=== PATIENT | female | born 1995 | race Caucasian/White ===

== ENCOUNTER 2021-06-15 15:57 | Inpatient (IN) | payer BC ==
[~2021-06-15 15:57] MED LIST: Bupivacaine 0.25% 10 ML SDV ONE
[2021-06-15] MEDS ORDERED: Ondansetron 4 MG/2 ML SDV IVPUSH PRN (16:33)
[2021-06-15] MEDS ORDERED: Nalbuphine 10 MG/1 ML Vial IVPUSH PRN (16:33)
[2021-06-15] MEDS ORDERED: Sodium Chloride 0.9% 10 ML Syringe FLUSH PRN (16:33)
[2021-06-15] MEDS ORDERED: Oxytocin/Lactated Ringers 10 UNIT/1,000 ML BAG IV SCH (16:45)
[2021-06-15] MEDS: Lactated Ringers 1,000 ML IV SCH ×2 (19:14→22:37)
[2021-06-15] MEDS: Oxytocin/Lactated Ringers 10 UNIT/1,000 ML BAG IV SCH (19:15)
[2021-06-15] MEDS: Sodium Chloride 0.9% 10 ML Syringe FLUSH SCH (22:04)
[2021-06-15] MEDS ORDERED: diphenhydrAMINE 50 MG/ML SDV IVPUSH PRN (23:57)
[2021-06-15] MEDS ORDERED: ePHEDrine 50 MG/ML SDV IVPUSH PRN (23:57)
[2021-06-16] MEDS: fentaNYL 100 MCG/2 ML SDV EPIDUR PRN ×2 (01:05→13:33)
[2021-06-16] MEDS: Lactated Ringers 1,000 ML IV SCH ×2 (01:05→07:32)
[2021-06-16] MEDS: Bupivacaine/fentaNYL/NS 100 ML Bag EPIDUR PRN ×3 (01:05→17:30)
[2021-06-16] MEDS: Sodium Chloride 0.9% 10 ML Syringe FLUSH SCH (12:32)
[2021-06-16] MEDS: Oxytocin/Lactated Ringers 10 UNIT/1,000 ML BAG IV SCH (12:35)
[2021-06-16] MEDS ORDERED: Lidocaine 1% 50 ML MDV ONE (18:58)
[2021-06-16] MEDS ORDERED: Oxytocin/Lactated Ringers 20 UNIT/1,000 ML BAG IV SCH ×2 (19:15→20:19)
[2021-06-16] MEDS ORDERED: Magnesium Hydroxide 400 MG/5 ML Susp 30 ML Cup PO PRN (20:19)
[2021-06-16] MEDS ORDERED: Benzocaine/Menthol 20%-0.5% Spray 78 GM Cannister TOP PRN (20:19)
[2021-06-16] MEDS: Witch Hazel Medicated Pads 40/Jar TOP PRN (21:03)
[2021-06-16] MEDS: Ibuprofen 600 MG Tab PO PRN (21:04)
[2021-06-16] MEDS: Docusate Sodium 100 MG Cap PO PRN (21:05)
[2021-06-17] MEDS: Ibuprofen 600 MG Tab PO PRN ×2 (06:00→16:41)
[2021-06-17] MEDS: Acetaminophen 325 MG Tab PO PRN (08:43)
[2021-06-17] MEDS: Docusate Sodium 100 MG Cap PO PRN (16:41)
[2021-06-18] MEDS: Witch Hazel Medicated Pads 40/Jar TOP PRN (01:44)
[2021-06-18] MEDS: Ibuprofen 600 MG Tab PO PRN (01:44)
[2021-06-18] MEDS: Docusate Sodium 100 MG Cap PO PRN (07:39)
[2021-06-18] MEDS: Acetaminophen 325 MG Tab PO PRN (07:39)
== END 2021-06-18 12:18 | disposition home or self-care (01) | DRG 560 ==
LOC: JD.OB 15:57 → UNDOADMOB 15:57 → OBSVTOIN 18:48 → INTOOBSV 18:48 → OBSVTOIN 06-16 18:48 → JD.OB 06-16 18:48 → UNDODISIN 06-18 12:18
PROVIDERS: ADMIT Obstetrics & Gynecology; ATTEND Obstetrics & Gynecology
PROC: 3E0R3BZ Introduction of Anesthetic Agent into Spinal Canal, Percutaneous Approach (ICD-10-PCS; principal; 2021-06-15)
PROC: 0U7C7ZZ Dilation of Cervix, Via Natural or Artificial Opening (ICD-10-PCS; principal; 2021-06-15)
PROC: 3E033VJ Introduction of Other Hormone into Peripheral Vein, Percutaneous Approach (ICD-10-PCS; principal; 2021-06-15)
PROC: 4A1HXCZ Monitoring of Products of Conception, Cardiac Rate, External Approach (ICD-10-PCS; principal; 2021-06-15)
PROC: 10D07Z6 Extraction of Products of Conception, Vacuum, Via Natural or Artificial Opening (ICD-10-PCS; principal; 2021-06-15)
PROC: 0KQM0ZZ Repair Perineum Muscle, Open Approach (ICD-10-PCS; principal; 2021-06-15)
DX: O69.81X0 Labor and delivery complicated by cord around neck, without compression, not applicable or unspecified (principal); O70.1 Second degree perineal laceration during delivery; Z37.0 Single live birth; Z3A.39 39 weeks gestation of pregnancy; Z20.822 Contact with and (suspected) exposure to COVID-19
CPT/HCPCS: 01967; 36415; 51701; 51702; 59025; 59409; 85025; 86592; 86850; 86900; 86901; A9270-GY; J2001; J2300; J2405; J2590; J3010; J3490; J7120; U0002

== ENCOUNTER 2022-09-30 17:59 | Emergency (ER) | payer SELFPAY ==
[2022-09-30] MEDS ORDERED: Ondansetron 4 MG/2 ML SDV IVPUSH ONE (18:33)
[2022-09-30] MEDS ORDERED: Sodium Chloride 0.9% 1,000 ML IV ONE (18:33)
[2022-09-30 18:39] LABS: BASOPHILS ABSOLUTE AUTO 0.03 K/mm3 (0.01-0.08); BASOPHILS PERCENT AUTO 0.4 % (0.1-1.2); EOSINOPHILS ABSOLUTE AUTO 0.07 K/mm3 (0.04-0.36); EOSINOPHILS PERCENT AUTO 0.9 (0.7-5.8); HEMATOCRIT 35.1 % (34.1-44.9); HEMOGLOBIN 11.6 gm/dl (11.2-15.7); IMMATURE GRAN ABSOLUTE AUTO 0.02 K/mm3 (0.00-0.10); IMMATURE GRAN PERCENT AUTO 0.3 % (<=1.0); LYMPHOCYTES ABSOLUTE AUTO 1.99 K/mm3 (1.18-3.74); LYMPHOCYTES PERCENT AUTO 25.7 % (19.3-51.7); MEAN CORPUSCULAR HEMOGLOBIN 32.8 pg (25.6-32.2); MEAN CORPUSCULAR VOLUME 99.2 fl (79.4-94.8); MEAN PLATELET VOLUME 8.9 fl (9.4-12.3); MONOCYTES ABSOLUTE AUTO 0.52 K/mm3 (0.24-0.36); MONOCYTES PERCENT AUTO 6.7 % (4.7-12.5); PLATELET COUNT,PLT 264 K/mm3 (182-369); RED BLOOD CELL COUNT 3.54 M/mm3 (3.98-5.22); WHITE BLOOD CELL COUNT,WBC 7.73 K/mm3 (3.98-10.04)
[2022-09-30 18:50] LABS: A/G RATIO 0.8 (1-2); ALBUMIN 2.9 g/dl (3.4-5.0); ANION GAP 13.4 (5-15); BILIRUBIN TOTAL 0.4 mg/dL (0.2-1.0); BUN/CREATININE RATIO 8.6 (14-18); CALCIUM 7.9 mg/dL (8.5-10.1); CREATININE 0.7 mg/dL (0.55-1.02); EST CRCL DRUG DOSING (CG) 99.86 mL/min; MAGNESIUM 1.6 mg/dL (1.8-2.4); POTASSIUM,K 3.4 mEq/L (3.5-5.1); PROTEIN TOTAL,TP 6.6 g/dl (6.4-8.2)
[2022-09-30] MEDS ORDERED: Potassium Chloride 20 MEQ Tab.ER PO ONE (19:24)
[2022-09-30] MEDS ORDERED: Magnesium Sulfate/Water 2 GM in Premix Bag 1 BAG IV ONE (19:24)
[2022-09-30] MEDS ORDERED: Magnesium Oxide 400 MG Tab PO ONE (19:35)
== END 2022-09-30 19:50 | disposition home or self-care (01) ==
LOC: JD.ED 17:59 → JD.OBCHECK 17:59 → JD.OB 18:09 → JD.ED 18:09 → JD.OBCHECK 18:09 → EDSTATUS 18:14 → JD.ED 19:50
DX: O21.2 Late vomiting of pregnancy (principal); Z3A.22 22 weeks gestation of pregnancy
CPT/HCPCS: 36415; 80053; 83735; 85025; 96361; 96374; 99284; A9270; J2405; J7030

== ENCOUNTER 2023-01-06 20:36 | Observation (INO) | payer OTHER | END 2023-01-06 21:25 | disposition home or self-care (01) | LOC: JD.OBCHECK 20:36 → JD.OB 20:39 → JD.OBCHECK 20:51 | PROVIDERS: ADMIT Obstetrics & Gynecology; ATTEND Obstetrics & Gynecology | DX: O47.03 False labor before 37 completed weeks of gestation, third trimester (principal); Z3A.36 36 weeks gestation of pregnancy | CPT/HCPCS: 59025 ==

== ENCOUNTER 2023-01-20 12:34 | Inpatient (IN) | payer OTHER ==
[2023-01-20] MEDS ORDERED: Lidocaine 1% 50 ML MDV INJECT ONE (12:49)
[2023-01-20] MEDS ORDERED: Nalbuphine HCl 10 MG/ 1ML Amp IVPUSH PRN (12:49)
[2023-01-20] MEDS ORDERED: Sodium Chloride 0.9% 10 ML Syringe FLUSH PRN (12:49)
[2023-01-20] MEDS ORDERED: Ondansetron 4 MG/2 ML SDV IVPUSH PRN (12:54)
[2023-01-20] MEDS ORDERED: Oxytocin/Lactated Ringers 10 UNIT/1,000 ML BAG IV SCH ×2 (13:00)
[2023-01-20] MEDS ORDERED: Lactated Ringers 1,000 ML IV SCH (13:00)
[2023-01-20 13:13] LABS: BASOPHILS PERCENT AUTO 0.3 % (0.0-1.0); HEMATOCRIT 32.2 % (37.0-47.0); HEMOGLOBIN 10.6 gm/dl (12.0-16.0); IMMATURE GRAN ABSOLUTE AUTO 0.03 K/mm3 (0.00-0.05); IMMATURE GRAN PERCENT AUTO 0.3 % (0.0-0.4); LYMPHOCYTES ABSOLUTE AUTO 1.9 K/mm3 (1.0-4.8); LYMPHOCYTES PERCENT AUTO 19.1 % (24.0-44.0); MEAN CORPUSCULAR HEMOGLOBIN 31.9 pg (28.0-32.0); MEAN CORPUSCULAR HGB CONC 32.9 g/dl (32.0-36.0); MEAN PLATELET VOLUME 9.8 fl (9.4-12.3); MONOCYTES ABSOLUTE AUTO 0.5 K/mm3 (0.0-0.8); MONOCYTES PERCENT AUTO 4.6 % (0.0-8.0); NEUTROPHILS ABSOLUTE AUTO 7.5 K/mm3 (1.8-7.7); NEUTROPHILS PERCENT AUTO 75.7 % (41.0-71.0); PLATELET COUNT,PLT 218 K/mm3 (150-400); RED BLOOD CELL COUNT 3.32 M/mm3 (4.10-5.30); WHITE BLOOD CELL COUNT,WBC 9.92 K/mm3 (3.9-11.3)
[2023-01-20] MEDS ORDERED: ePHEDrine 50 MG/ML SDV IVPUSH PRN (13:37)
[2023-01-20] MEDS ORDERED: diphenhydrAMINE 50 MG/ML SDV IVPUSH PRN (13:37)
[2023-01-20] MEDS ORDERED: fentaNYL 100 MCG/2 ML SDV EPIDUR PRN (13:37)
[2023-01-20] MEDS ORDERED: Bupivacaine/fentaNYL/NS 100 ML Bag EPIDUR PRN (13:37)
[2023-01-20] MEDS ORDERED: Calcium Carbonate 500 MG Tab.Chew PO ONE (16:15)
[2023-01-20] MEDS ORDERED: Bupivacaine 0.25% 10 ML SDV ONE (18:00)
[2023-01-20] MEDS ORDERED: Witch Hazel Medicated Pads 40/Jar TOP PRN (20:54)
[2023-01-20] MEDS ORDERED: Ibuprofen 600 MG Tab PO PRN (20:54)
[2023-01-20] MEDS ORDERED: Acetaminophen 325 MG Tab PO PRN (20:54)
[2023-01-20] MEDS ORDERED: Benzocaine/Menthol 20%-0.5% Spray 78 GM Cannister TOP PRN (20:54)
[2023-01-20] MEDS ORDERED: Sodium Chloride 0.9% 10 ML Syringe FLUSH SCH (21:00)
== END 2023-01-21 09:30 | disposition home or self-care (01) | DRG 807 ==
LOC: JD.OB 12:34 → OBSVTOIN 16:30 → JD.OB 16:30
PROVIDERS: ADMIT Obstetrics & Gynecology; ATTEND Obstetrics & Gynecology
PROC: 10E0XZZ Delivery of Products of Conception, External Approach (ICD-10-PCS; principal; 2023-01-20)
PROC: 10907ZC Drainage of Amniotic Fluid, Therapeutic from Products of Conception, Via Natural or Artificial Opening (ICD-10-PCS; 2023-01-20)
PROC: 0HQ9XZZ Repair Perineum Skin, External Approach (ICD-10-PCS; 2023-01-20)
PROC: 3E0R3BZ Introduction of Anesthetic Agent into Spinal Canal, Percutaneous Approach (ICD-10-PCS; 2023-01-20)
PROC: 00HU33Z Insertion of Infusion Device into Spinal Canal, Percutaneous Approach (ICD-10-PCS; 2023-01-20)
DX: O66.0 Obstructed labor due to shoulder dystocia (principal); Z37.0 Single live birth; O69.81X0 Labor and delivery complicated by cord around neck, without compression, not applicable or unspecified; O70.0 First degree perineal laceration during delivery; Z3A.38 38 weeks gestation of pregnancy; Z98.890 Other specified postprocedural states
CPT/HCPCS: 36415; 51701; 59025; 59409; 85025; 86592; 86850; 86900; 86901; A9270-GY; J2590; J3010; J3490; J7120

== ENCOUNTER 2023-01-26 11:12 | Emergency (ER) | payer OTHER ==
[2023-01-26] MEDS ORDERED: Sodium Chloride 0.9% 10 ML Syringe FLUSH PRN ×2 (11:20→12:11)
[2023-01-26 11:34] LABS: BASOPHILS PERCENT AUTO 0.4 % (0.0-1.0); EOSINOPHILS ABSOLUTE AUTO 0.1 K/mm3 (0.0-0.4); EOSINOPHILS PERCENT AUTO 1.1 % (0.0-6.0); HEMATOCRIT 33.1 % (37.0-47.0); HEMOGLOBIN 10.8 gm/dl (12.0-16.0); IMMATURE GRAN ABSOLUTE AUTO 0.03 K/mm3 (0.00-0.05); IMMATURE GRAN PERCENT AUTO 0.5 % (0.0-0.4); LYMPHOCYTES ABSOLUTE AUTO 1.5 K/mm3 (1.0-4.8); LYMPHOCYTES PERCENT AUTO 26.4 % (24.0-44.0); MEAN CORPUSCULAR HEMOGLOBIN 31.2 pg (28.0-32.0); MEAN CORPUSCULAR HGB CONC 32.6 g/dl (32.0-36.0); MEAN CORPUSCULAR VOLUME 95.7 fl (83.0-99.0); MEAN PLATELET VOLUME 8.9 fl (9.4-12.3); MONOCYTES ABSOLUTE AUTO 0.2 K/mm3 (0.0-0.8); MONOCYTES PERCENT AUTO 4.3 % (0.0-8.0); NEUTROPHILS ABSOLUTE AUTO 3.7 K/mm3 (1.8-7.7); NEUTROPHILS PERCENT AUTO 67.3 % (41.0-71.0); PLATELET COUNT,PLT 278 K/mm3 (150-400); RED BLOOD CELL COUNT 3.46 M/mm3 (4.10-5.30); WHITE BLOOD CELL COUNT,WBC 5.52 K/mm3 (3.9-11.3)
[2023-01-26] MEDS ORDERED: Ketorolac 30 MG/ML SDV IVPUSH ONE (11:44)
[2023-01-26 11:54] LABS: PROTHROMBIN TIME 9.6 SECONDS (9.7-12.0)
[2023-01-26 11:59] LABS: INR < 0.93
[2023-01-26 11:59] LABS: APPEARANCE,URINE SLT CLOUDY (Clear); BILIRUBIN,URINE NEGATIVE (Negative); COLOR,URINE YELLOW (Yellow); GLUCOSE,URINE NEGATIVE (Negative); KETONES,URINE NEGATIVE (Negative); LEUKOCYTE ESTERASE,URINE 1+ (Negative); NITRITE,URINE NEGATIVE (Negative); OCCULT BLOOD,URINE 2+ (Negative); PROTEIN,URINE NEGATIVE (Negative); UROBILINOGEN,URINE 0.2 (0.2-1.0)
[2023-01-26 12:00] LABS: D-DIMER QUANTITATIVE 2.87 mg/L (0.19-0.50)
[2023-01-26 12:04] LABS: A/G RATIO 0.7 (1-2); ALANINE AMINOTRANSFERASE,ALT 20 U/L (14-59); ALKALINE PHOSPHATASE 125 U/L (46-116); ANION GAP 14.1 (5-15); ASPARTATE AMNIOTRANSFERASE,AST 24 U/L (15-37); BILIRUBIN TOTAL 0.4 mg/dL (0.2-1.0); BLOOD UREA NITROGEN,BUN 7 mg/dL (7-18); CALCIUM 8.6 mg/dL (8.5-10.1); CARBON DIOXIDE,CO2 23 mEq/L (21-32); CHLORIDE,CL 106 mEq/L (98-107); CREATININE 0.7 mg/dL (0.55-1.02); EST CRCL DRUG DOSING (CG) 98.98 mL/min; ESTIMATED GFR 121 mL/min (>60); GLUCOSE RANDOM 97 mg/dL (70-99); MAGNESIUM 1.9 mg/dL (1.8-2.4); POTASSIUM,K 4.1 mEq/L (3.5-5.1); PROTEIN TOTAL,TP 7.2 g/dl (6.4-8.2); SODIUM,NA 139 mEq/L (136-145)
[2023-01-26] MEDS ORDERED: Sodium Chloride 0.9% 10 ML Syringe FLUSH ONE (12:06)
[2023-01-26] MEDS ORDERED: Iopamidol 755 Mg/ML 100 ML Bottle IVPUSH ONE ×2 (12:06→12:11)
[2023-01-26 12:13] LABS: TROPONIN I HIGH SENSITIVITY < 4 pg/mL (<=51)
[2023-01-26] MEDS ORDERED: Sodium Chloride 0.9% 100 ML IV SCH ×2 (12:15)
[2023-01-26 12:38] LABS: BACTERIA,URINE FEW /hpf (FEW); EPITHELIAL CELLS,URINE 0-5 /hpf (0-5); MUCUS,URINE FEW /hpf (FEW)
== END 2023-01-26 13:38 | disposition home or self-care (01) ==
LOC: JD.ED 11:12
DX: R07.89 Other chest pain (principal); R00.1 Bradycardia, unspecified; Z91.011 Allergy to milk products
CPT/HCPCS: 36415; 71045; 71275; 80053; 81001; 83735; 83880; 84484; 85025; 85379; 85610; 85730; 93005; 93246; 96374; 99285; J1885; J3490; Q9967

== ENCOUNTER 2024-09-07 11:30 | Emergency (ER) | payer OTHER ==
[2024-09-07 12:05] LABS: BASOPHILS PERCENT AUTO 0.5 % (0.0-1.0); EOSINOPHILS PERCENT AUTO 0.2 % (0.0-6.0); HEMATOCRIT 41.1 % (37.0-47.0); IMMATURE GRAN ABSOLUTE AUTO 0.01 K/mm3 (0.00-0.05); IMMATURE GRAN PERCENT AUTO 0.2 % (0.0-0.4); LYMPHOCYTES ABSOLUTE AUTO 1.6 K/mm3 (1.0-4.8); LYMPHOCYTES PERCENT AUTO 28.3 % (24.0-44.0); MEAN CORPUSCULAR HEMOGLOBIN 33.4 pg (28.0-32.0); MEAN CORPUSCULAR HGB CONC 33.8 g/dl (32.0-36.0); MEAN PLATELET VOLUME 9.4 fl (9.4-12.3); MONOCYTES ABSOLUTE AUTO 0.3 K/mm3 (0.0-0.8); MONOCYTES PERCENT AUTO 5.7 % (0.0-8.0); NEUTROPHILS ABSOLUTE AUTO 3.6 K/mm3 (1.8-7.7); NEUTROPHILS PERCENT AUTO 65.1 % (41.0-71.0); PLATELET COUNT,PLT 282 K/mm3 (150-400); RED BLOOD CELL COUNT 4.16 M/mm3 (4.10-5.30); WHITE BLOOD CELL COUNT,WBC 5.47 K/mm3 (3.9-11.3)
[2024-09-07 12:07] LABS: HEMOGLOBIN 13.9 gm/dl (12.0-16.0); MEAN CORPUSCULAR VOLUME 98.8 fl (83.0-99.0)
[2024-09-07] MEDS: Ketorolac 30 MG/ML SDV IVPUSH ONE (12:09)
[2024-09-07] MEDS: Sodium Chloride 0.9% 1,000 ML IV STA ×2 (12:09→13:43)
[2024-09-07] MEDS: Sodium Chloride 0.9% 10 ML Syringe FLUSH PRN (12:10)
[2024-09-07 12:29] LABS: A/G RATIO 1.3 (1-2); ALANINE AMINOTRANSFERASE,ALT 19 U/L (14-59); ALBUMIN 4.3 g/dl (3.4-5.0); ALKALINE PHOSPHATASE 67 U/L (46-116); ANION GAP 16.4 (5-15); ASPARTATE AMNIOTRANSFERASE,AST 17 U/L (15-37); BILIRUBIN TOTAL 0.9 mg/dL (0.2-1.0); BLOOD UREA NITROGEN,BUN 5 mg/dL (7-18); BUN/CREATININE RATIO 5.6 (14-18); CALCIUM 9.1 mg/dL (8.5-10.1); CARBON DIOXIDE,CO2 23 mEq/L (21-32); CHLORIDE,CL 104 mEq/L (98-107); CREATININE 0.9 mg/dL (0.55-1.02); ESTIMATED GFR 89 mL/min (>60); GLUCOSE RANDOM 110 mg/dL (70-99); MAGNESIUM 1.7 mg/dL (1.8-2.4); POTASSIUM,K 3.4 mEq/L (3.5-5.1); PROTEIN TOTAL,TP 7.7 g/dl (6.4-8.2); SODIUM,NA 140 mEq/L (136-145); TROPONIN I HIGH SENSITIVITY < 4 pg/mL (<=51)
== END 2024-09-07 14:56 | disposition home or self-care (01) ==
LOC: JD.ED 11:30
DX: R07.89 Other chest pain (principal); R53.83 Other fatigue; Z91.011 Allergy to milk products
CPT/HCPCS: 36415; 71046; 80053; 83735; 84484; 85025; 85379; 93005; 96361; 96374; 99285; J1885; J7030

== ENCOUNTER 2024-10-24 14:15 | Emergency (ER) | payer OTHER ==
[2024-10-24 15:27] LABS: BASOPHILS ABSOLUTE AUTO 0.0 K/mm3 (0.0-0.2); BASOPHILS PERCENT AUTO 0.4 % (0.0-1.0); EOSINOPHILS ABSOLUTE AUTO 0.1 K/mm3 (0.0-0.4); EOSINOPHILS PERCENT AUTO 0.7 % (0.0-6.0); IMMATURE GRAN ABSOLUTE AUTO 0.02 K/mm3 (0.00-0.05); IMMATURE GRAN PERCENT AUTO 0.3 % (0.0-0.4); LYMPHOCYTES ABSOLUTE AUTO 1.7 K/mm3 (1.0-4.8); LYMPHOCYTES PERCENT AUTO 25.9 % (24.0-44.0); MEAN PLATELET VOLUME 9.6 fl (9.4-12.3); MONOCYTES ABSOLUTE AUTO 0.4 K/mm3 (0.0-0.8); MONOCYTES PERCENT AUTO 5.4 % (0.0-8.0); NEUTROPHILS ABSOLUTE AUTO 4.5 K/mm3 (1.8-7.7); NEUTROPHILS PERCENT AUTO 67.3 % (41.0-71.0); NRBC ABSOLUTE 0.00 (0.00-0.02); NRBC PERCENT 0.0 % (0.0-0.2); PLATELET COUNT,PLT 195 K/mm3 (150-400); RED BLOOD CELL COUNT 3.69 M/mm3 (4.10-5.30); WHITE BLOOD CELL COUNT,WBC 6.69 K/mm3 (3.9-11.3)
[2024-10-24 15:52] LABS: A/G RATIO 1.2 (1-2); ALANINE AMINOTRANSFERASE,ALT 17.0 U/L (14-59); ASPARTATE AMNIOTRANSFERASE,AST 14.0 U/L (15-37); BILIRUBIN TOTAL 0.5 mg/dL (0.2-1.0); BLOOD UREA NITROGEN,BUN 8.0 mg/dL (7-18); CARBON DIOXIDE,CO2 27.0 mEq/L (21-32); CHLORIDE,CL 105.0 mEq/L (98-107); CREATININE 0.7 mg/dL (0.55-1.02); EST CRCL DRUG DOSING (CG) 98.09 mL/min; ESTIMATED GFR 120.0 mL/min (>60); GLUCOSE RANDOM 91.0 mg/dL (70-99); POTASSIUM,K 3.9 mEq/L (3.5-5.1); PROTEIN TOTAL,TP 7.3 g/dl (6.4-8.2); SODIUM,NA 142.0 mEq/L (136-145)
[2024-10-24] MEDS: Ketorolac 30 MG/ML SDV IVPUSH ONE (16:14)
[2024-10-24] MEDS: Sodium Chloride 0.9% 10 ML Syringe FLUSH PRN (16:15)
== END 2024-10-24 16:50 | disposition home or self-care (01) ==
LOC: JD.ED 14:15
DX: R10.2 Pelvic and perineal pain (principal); Z79.899 Other long term (current) drug therapy; Z91.011 Allergy to milk products
CPT/HCPCS: 36415; 80053; 84703; 85025; 86850; 86900; 86901; 96374; 99284; J1885

== ENCOUNTER 2024-12-19 14:02 | Emergency (ER) | payer OTHER | END 2024-12-19 14:54 | disposition left against medical advice (07) | LOC: JD.ED 14:02 | DX: Z53.21 Procedure and treatment not carried out due to patient leaving prior to being seen by health care provider (principal) ==

== ENCOUNTER 2024-12-20 11:11 | Emergency (ER) | payer OTHER ==
[2024-12-20 12:34] LABS: BASOPHILS ABSOLUTE AUTO 0.0 K/mm3 (0.0-0.2); BASOPHILS PERCENT AUTO 0.5 % (0.0-1.0); EOSINOPHILS ABSOLUTE AUTO 0.0 K/mm3 (0.0-0.4); EOSINOPHILS PERCENT AUTO 0.2 % (0.0-6.0); IMMATURE GRAN ABSOLUTE AUTO 0.01 K/mm3 (0.00-0.05); IMMATURE GRAN PERCENT AUTO 0.1 % (0.0-0.4); LYMPHOCYTES ABSOLUTE AUTO 2.1 K/mm3 (1.0-4.8); LYMPHOCYTES PERCENT AUTO 25.0 % (24.0-44.0); MEAN PLATELET VOLUME 9.1 fl (9.4-12.3); MONOCYTES ABSOLUTE AUTO 0.6 K/mm3 (0.0-0.8); MONOCYTES PERCENT AUTO 6.8 % (0.0-8.0); NEUTROPHILS ABSOLUTE AUTO 5.6 K/mm3 (1.8-7.7); NEUTROPHILS PERCENT AUTO 67.4 % (41.0-71.0); NRBC ABSOLUTE 0.00 (0.00-0.02); NRBC PERCENT 0.0 % (0.0-0.2); PLATELET COUNT,PLT 260 K/mm3 (150-400); RED BLOOD CELL COUNT 4.00 M/mm3 (4.10-5.30); WHITE BLOOD CELL COUNT,WBC 8.25 K/mm3 (3.9-11.3)
[2024-12-20 13:22] LABS: A/G RATIO 1.2 (1-2); ALANINE AMINOTRANSFERASE,ALT 23.0 U/L (14-59); ASPARTATE AMNIOTRANSFERASE,AST 17.0 U/L (15-37); BILIRUBIN TOTAL 0.5 mg/dL (0.2-1.0); BLOOD UREA NITROGEN,BUN 9.0 mg/dL (7-18); CARBON DIOXIDE,CO2 26.0 mEq/L (21-32); CHLORIDE,CL 104.0 mEq/L (98-107); CREATININE 0.7 mg/dL (0.55-1.02); EST CRCL DRUG DOSING (CG) 98.09 mL/min; ESTIMATED GFR 120.0 mL/min (>60); GLUCOSE RANDOM 93.0 mg/dL (70-99); HCG QUANTITATIVE 2433.0 mIU/mL; POTASSIUM,K 4.1 mEq/L (3.5-5.1); PROTEIN TOTAL,TP 7.5 g/dl (6.4-8.2); SODIUM,NA 141.0 mEq/L (136-145)
== END 2024-12-20 13:45 | disposition home or self-care (01) ==
LOC: JD.ED 11:11
DX: O99.891 Other specified diseases and conditions complicating pregnancy (principal); R10.2 Pelvic and perineal pain; Z79.899 Other long term (current) drug therapy; Z91.011 Allergy to milk products
CPT/HCPCS: 36415; 76817; 76817-26; 80053; 84702; 85025; 99284

== ENCOUNTER 2025-03-04 10:51 | Emergency (ER) | payer OTHER ==
[2025-03-04] MEDS ORDERED: Sodium Chloride 0.9% 10 ML Syringe FLUSH PRN (11:26)
[2025-03-04 11:36] LABS: BASOPHILS ABSOLUTE AUTO 0.0 K/mm3 (0.0-0.2); BASOPHILS PERCENT AUTO 0.2 % (0.0-1.0); EOSINOPHILS ABSOLUTE AUTO 0.0 K/mm3 (0.0-0.4); EOSINOPHILS PERCENT AUTO 0.4 % (0.0-6.0); IMMATURE GRAN ABSOLUTE AUTO 0.04 K/mm3 (0.00-0.05); IMMATURE GRAN PERCENT AUTO 0.4 % (0.0-0.4); LYMPHOCYTES ABSOLUTE AUTO 1.3 K/mm3 (1.0-4.8); LYMPHOCYTES PERCENT AUTO 13.4 % (24.0-44.0); MEAN PLATELET VOLUME 9.4 fl (9.4-12.3); MONOCYTES ABSOLUTE AUTO 0.4 K/mm3 (0.0-0.8); MONOCYTES PERCENT AUTO 4.4 % (0.0-8.0); NEUTROPHILS ABSOLUTE AUTO 8.0 K/mm3 (1.8-7.7); NEUTROPHILS PERCENT AUTO 81.2 % (41.0-71.0); NRBC ABSOLUTE 0.00 (0.00-0.02); NRBC PERCENT 0.0 % (0.0-0.2); PLATELET COUNT,PLT 212 K/mm3 (150-400); RED BLOOD CELL COUNT 3.98 M/mm3 (4.10-5.30); WHITE BLOOD CELL COUNT,WBC 9.83 K/mm3 (3.9-11.3)
[2025-03-04 11:47] LABS: A/G RATIO 1.0 (1-2); ALANINE AMINOTRANSFERASE,ALT 17 U/L (14-59); ASPARTATE AMNIOTRANSFERASE,AST 14 U/L (15-37); BILIRUBIN TOTAL 0.6 mg/dL (0.2-1.0); BLOOD UREA NITROGEN,BUN 10 mg/dL (7-18); CARBON DIOXIDE,CO2 24 mEq/L (21-32); CHLORIDE,CL 104 mEq/L (98-107); CREATININE 0.6 mg/dL (0.55-1.02); EST CRCL DRUG DOSING (CG) 113.41 mL/min; ESTIMATED GFR 124 mL/min (>60); GLUCOSE RANDOM 86 mg/dL (70-99); POTASSIUM,K 3.5 mEq/L (3.5-5.1); PROTEIN TOTAL,TP 7.2 g/dl (6.4-8.2); SODIUM,NA 139 mEq/L (136-145)
[2025-03-04 11:48] LABS: TROPONIN I HIGH SENSITIVITY < 4 pg/mL (<=51)
== END 2025-03-04 14:25 | disposition home or self-care (01) ==
LOC: JD.ED 10:51
DX: O21.9 Vomiting of pregnancy, unspecified (principal); O99.891 Other specified diseases and conditions complicating pregnancy; R07.89 Other chest pain; R10.84 Generalized abdominal pain; Z3A.15 15 weeks gestation of pregnancy; Z79.899 Other long term (current) drug therapy; Z91.0110 Allergy to milk products, unspecified
CPT/HCPCS: 36415; 76815; 80053; 84484; 85025; 93005; 96361; 96374; 96375; 99285; J2765; J7030; J1171

== ENCOUNTER 2025-03-18 11:42 | Emergency (ER) | payer OTHER ==
[2025-03-18 12:49] LABS: BASOPHILS ABSOLUTE AUTO 0.0 K/mm3 (0.0-0.2); BASOPHILS PERCENT AUTO 0.3 % (0.0-1.0); EOSINOPHILS ABSOLUTE AUTO 0.0 K/mm3 (0.0-0.4); EOSINOPHILS PERCENT AUTO 0.6 % (0.0-6.0); IMMATURE GRAN ABSOLUTE AUTO 0.02 K/mm3 (0.00-0.05); IMMATURE GRAN PERCENT AUTO 0.3 % (0.0-0.4); LYMPHOCYTES ABSOLUTE AUTO 1.5 K/mm3 (1.0-4.8); LYMPHOCYTES PERCENT AUTO 20.7 % (24.0-44.0); MEAN PLATELET VOLUME 9.0 fl (9.4-12.3); MONOCYTES ABSOLUTE AUTO 0.3 K/mm3 (0.0-0.8); MONOCYTES PERCENT AUTO 4.5 % (0.0-8.0); NEUTROPHILS ABSOLUTE AUTO 5.2 K/mm3 (1.8-7.7); NEUTROPHILS PERCENT AUTO 73.6 % (41.0-71.0); NRBC ABSOLUTE 0.00 (0.00-0.02); NRBC PERCENT 0.0 % (0.0-0.2); PLATELET COUNT,PLT 196 K/mm3 (150-400); RED BLOOD CELL COUNT 3.37 M/mm3 (4.10-5.30); WHITE BLOOD CELL COUNT,WBC 7.11 K/mm3 (3.9-11.3)
[2025-03-18 13:09] LABS: A/G RATIO 1.0 (1-2); ALANINE AMINOTRANSFERASE,ALT 13.0 U/L (14-59); ASPARTATE AMNIOTRANSFERASE,AST 15.0 U/L (15-37); BILIRUBIN TOTAL 0.5 mg/dL (0.2-1.0); BLOOD UREA NITROGEN,BUN 3.0 mg/dL (7-18); CARBON DIOXIDE,CO2 23.0 mEq/L (21-32); CHLORIDE,CL 105.0 mEq/L (98-107); CREATININE 0.6 mg/dL (0.55-1.02); EST CRCL DRUG DOSING (CG) 113.41 mL/min; ESTIMATED GFR 124.0 mL/min (>60); GLUCOSE RANDOM 84.0 mg/dL (70-99); POTASSIUM,K 3.4 mEq/L (3.5-5.1); PROTEIN TOTAL,TP 6.3 g/dl (6.4-8.2); SODIUM,NA 138.0 mEq/L (136-145)
== END 2025-03-18 13:09 | disposition left against medical advice (07) ==
LOC: JD.ED 11:42
DX: O99.891 Other specified diseases and conditions complicating pregnancy (principal); M25.512 Pain in left shoulder; Z91.0110 Allergy to milk products, unspecified; Z79.899 Other long term (current) drug therapy; Z86.16 Personal history of COVID-19; Z3A.17 17 weeks gestation of pregnancy; Z95.9 Presence of cardiac and vascular implant and graft, unspecified
CPT/HCPCS: 36415; 71045; 71045-26; 80053; 82947; 85025; 99283